=== PATIENT | male | born 1955 | race Caucasian/White ===

== ENCOUNTER 2017-12-19 09:08 | Emergency (ER) | payer OTHER, SELFPAY ==
[2017-12-19 09:22] VITALS: TEMP 98.7; BMI 32.1
--- NOTE | 2017-12-19 10:00 | ED PDOC ---
HPI: Back Time Seen by Provider: 12/19/17 09:25 Chief Complaint (Nursing): Back Pain History Per: Patient History/Exam Limitations: no limitations Onset/Duration Of Symptoms: Days (5), Persistent Current Symptoms Are (Timing): Still Present Quality Of Discomfort: Aching Severity: Moderate Pain Scale Rating Of: 4 Previous Symptoms: None Associated Symptoms: None Exacerbating Factor(s): Turning, Movement Additional History Per: Patient Additional Complaint(s): Patient presenting with right lower back pain for 5 days. Reports pain is worse with bending, moving, and walking. Reports he was lifting heavy stuff at work 5 days prior. Denies any weakness, numbness, urinary complains, fever, or injury. Past Medical History Reviewed: Historical Data, Nursing Documentation, Vital Signs Vital Signs: Last Vital Signs Temp 98.7 F 12/19/17 09:20 Pulse 72 12/19/17 09:20 Resp 20 12/19/17 09:20 BP 144/75 12/19/17 09:20 Pulse Ox 97 12/19/17 09:20 - Medical History PMH: Diabetes, HTN, Hypercholesterolemia Denies: Chronic Kidney Disease - Surgical History Surgical History: Hernia Repair - Family History Family History: States: No Known Family Hx - Home Medications Home Medications: Ambulatory Orders Medication Instructions Recorded Aspirin [Aspirin Chewable] 81 mg PO DAILY 02/27/17 Atorvastatin [Lipitor] 40 mg PO DAILY 02/27/17 Losartan/Hydrochlorothiazide 1 each PO DAILY 02/27/17 [Losartan-Hctz 100-12.5 mg Tab] metFORMIN [glucOPHAGE] 500 mg PO BID 02/27/17 Cyclobenzaprine [Cyclobenzaprine 10 mg PO TID #15 tab 12/19/17 HCl] Naproxen 500 mg PO BID #10 tab 12/19/17 - Allergies Allergies/Adverse Reactions: Allergies Allergy/AdvReac Type Severity Reaction Status Date / Time No Known Allergies Allergy Verified 02/27/17 08:28 Review of Systems ROS Statement: Except As Marked, All Systems Reviewed And Found Negative Constitutional: Negative for: Fever Musculoskeletal: Positive for: Back Pain Neurological: Negative for: Weakness, Numbness, Incoordination Physical Exam - Reviewed Nursing Documentation Reviewed: Yes Vital Signs Reviewed: Yes - Physical Exam Appears: Positive for: Well, Non-toxic, No Acute Distress Head Exam: Positive for: ATRAUMATIC, NORMAL INSPECTION Skin: Positive for: Normal Color, Warm, Dry Eye Exam: Positive for: EOMI ENT: Positive for: Normal ENT Inspection Neck: Positive for: Painless ROM, Supple Cardiovascular/Chest: Positive for: Regular Rate, Rhythm Respiratory: Negative for: Respiratory Distress Gastrointestinal/Abdominal: Positive for: Soft. Negative for: Tenderness Back: Positive for: Muscle Spasm (Right lower back). Negative for: L CVA Tenderness, R CVA Tenderness Extremity: Positive for: Normal ROM Neurologic/Psych: Positive for: Alert, Oriented, Gait (steady) - ECG O2 Sat by Pulse Oximetry: 97 - Progress Re-evaluation Time: 10:44 Condition: Re-examined, Improved Medical Decision Making Medical Decision Making: Impression Back pain Diff dx include MS pain, muscle spasm. Plan Toradol IM flexeril PO urine dip reassess Disposition - Clinical Impression Clinical Impression: Low back pain - Patient ED Disposition Is Patient to be Admitted: No Doctor Will See Patient In The: Office Counseled Patient/Family Regarding: Studies Performed, Diagnosis, Need For Followup - Disposition Referrals: [facility] [Outside] Disposition: Routine/Home Disposition Time: 10:45 Condition: GOOD Additional Instructions: Take your medications as instructed. Follow up with your PCP in 2-3 days. Prescriptions: Cyclobenzaprine [Cyclobenzaprine HCl] 10 mg PO TID #15 tab Naproxen 500 mg PO BID #10 tab Instructions: Low Back Pain in Adults Forms: [facility] ED School/Work Excuse Print Language: ROMANIAN
[2017-12-19 11:04] VITALS: BP 130/75; PULSE 75; RESP 19; O2SAT 98
== END 2017-12-19 11:04 | disposition home or self-care (01) ==
LOC: H.ER 09:08
DX: M54.5 Low back pain (principal); E11.9 Type 2 diabetes mellitus without complications; Z79.84 Long term (current) use of oral hypoglycemic drugs; I10 Essential (primary) hypertension; Z79.82 Long term (current) use of aspirin
CPT/HCPCS: 96372; 99282; J1885

== ENCOUNTER 2018-08-21 17:05 | Emergency (ER) | payer SELFPAY ==
[2018-08-21 17:06] VITALS: BMI 32.1
[2018-08-21 17:19] VITALS: BP 139/70; PULSE 96; RESP 16; TEMP 98.6; O2SAT 96
--- NOTE | 2018-08-21 19:23 | ED PDOC ---
HPI: Male Pain Time Seen by Provider: 08/21/18 18:28 Chief Complaint (Nursing): Male Genitourinary Chief Complaint (Provider): Male Genitourinary History Per: Patient History/Exam Limitations: no limitations Additional Complaint(s): Patient is a 63 year old male who presents to the emergency department for penile irritation for x3 days. Patient has no urinary symptoms, penile discharge, fever, hematuria, scrotal pain or swelling, abdominal pain, headache, dizziness. He has not taken any medication for his symptoms and states he has never had a similar episode in the past. 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 No other complaints. PMD: Kassandra Reis Past Medical History Reviewed: Historical Data, Nursing Documentation, Vital Signs Vital Signs: Last Vital Signs Temp 98.6 F 08/21/18 17:15 Pulse 96 H 08/21/18 17:15 Resp 16 08/21/18 17:15 BP 139/70 08/21/18 17:15 Pulse Ox 96 08/21/18 17:15 - Medical History PMH: Diabetes, HTN, Hypercholesterolemia - Surgical History Surgical History: Hernia Repair - Family History Family History: States: Unknown Family Hx - Home Medications Home Medications: Ambulatory Orders Medication Instructions Recorded Aspirin [Aspirin Chewable] 81 mg PO DAILY 02/27/17 Atorvastatin [Lipitor] 40 mg PO DAILY 02/27/17 Losartan/Hydrochlorothiazide 1 each PO DAILY 02/27/17 [Losartan-Hctz 100-12.5 mg Tab] metFORMIN [glucOPHAGE] 500 mg PO BID 02/27/17 Cyclobenzaprine [Cyclobenzaprine 10 mg PO TID #15 tab 12/19/17 HCl] Naproxen 500 mg PO BID #10 tab 12/19/17 Clotrimazole 1% [Lotrimin AF 1%] 1 applic TOP BID #1 bottle 08/21/18 - Allergies Allergies/Adverse Reactions: Allergies Allergy/AdvReac Type Severity Reaction Status Date / Time No Known Allergies Allergy Verified 08/21/18 17:15 Review of Systems ROS Statement: Except As Marked, All Systems Reviewed And Found Negative Genitourinary Male: Positive for: Other (penile irritation). Negative for: Dysuria, Frequency, Incontinence, Hematuria, Penile Discharge, Scrotal Pain Physical Exam - Reviewed Nursing Documentation Reviewed: Yes Vital Signs Reviewed: Yes - Physical Exam Comments: GENERAL APPEARANCE: Patient is awake, alert, oriented x 3, in no acute distress. SKIN: Warm, dry; (-) cyanosis. EYES: (-) conjunctival injection ENMT: Mucous membranes moist. Airway patent: (-) stridor. NECK: Supple, FROM CHEST AND RESPIRATORY: (-) wheezing; (-) rales, (-) rhonchi; breath sounds equal bilaterally. Respirations even and nonlabored. HEART AND CARDIOVASCULAR: (-) irregularity ABDOMEN AND GI: Soft; (-) tenderness. EXTREMITIES: (-) deformity, (-) edema. GENITOURINARY: Uncircumcised penis; foreskin is easily retractable (-) phimosis (-) paraphimosis; (+) erythematous macules to the distal penile shaft with x1 white plaque. (-) testicular tenderness (-) scrotal swelling. ED RN Shilo was present for exam as a project estimator. NEURO AND PSYCH: Mental status as above; (-) focal findings. Gait: steady. Speech: clear. (-) facial asymmetry - ECG O2 Sat by Pulse Oximetry: 96 (RA) Pulse Ox Interpretation: Normal Medical Decision Making Medical Decision Making: Time: 1914 Impression: balanitis Plan: --Accucheck: 93. Diagnostic results d/w the patient in great detail. Diagnosis of balanitis, penile irritation d/w the patient. Based on history, exam and diagnostic results, plan will be for outpatient follow up with urology/clinic. Patient instructed to follow-up with pmd / referral provided / the clinic in 1- 2 days without fail. Advised to take medication as prescribed. Return to the emergency room at any time for any new or worsening symptoms. Patient states he fully agrees with and understands discharge instructions. States that he agrees with the plan and disposition. Verbalized and repeated discharge instructions and plan. I have given the patient opportunity to ask any additional questions. Scribe Attestation: Documented by Bartolo Alexander acting as a scribe for Dolly Wilkins Provider Scribe Attestation: All medical record entries made by the Scribe were at my direction and pe rsonally dictated by me. I have reviewed the chart and agree that the record accurately reflects my personal performance of the history, physical exam, medical decision making, and the department course for this patient. I have also personally directed, reviewed, and agree with the discharge instructions and disposition. Disposition - Clinical Impression Clinical Impression: Balanitis, Penile irritation - Patient ED Disposition Is Patient to be Admitted: No Counseled Patient/Family Regarding: Studies Performed, Diagnosis, Need For Followup, Rx Given - Disposition Referrals: Navneet Salas MD [Staff Provider] - [facility] [Outside] Disposition: Routine/Home Disposition Time: 19:15 Condition: STABLE Additional Instructions: La atencin mdica de emergencia que recibi hoy se dirigi a loretta sntomas agudos. Si le recetaron algn medicamento, llnelo y tmelo segn las indicaciones. Los sntomas pueden tardar varios kwok en resolverse. Regrese al Departamento de Emergencias si loretta sntomas empeoran, no mejoran o si tiene otros problemas. Comunquese con leung mdico dentro de 2 kwok para frances nueva evaluacin y kendra un seguimiento o llame a qiana de los mdicos / clnicas a los que ta sido referido y que figuran en el formulario de Informacin de visita al paciente que se incluye en leung paquete de sony. Lleve todos los documentos que recibi al momento del sony junto con los medicamentos que est tomando para leung visita de seguimiento. Nuestro tratamiento no puede reemplazar la atencin mdica continua por parte de un proveedor de atencin primaria (PCP) fuera del departamento de emergencias. Prescriptions: Clotrimazole 1% [Lotrimin AF 1%] 1 applic TOP BID #1 bottle Instructions: Balanitis Forms: [facility] (Algerian) Print Language: SETSWANA - POA Present On Arrival: None
== END 2018-08-21 20:35 | disposition home or self-care (01) ==
LOC: H.ER 17:05
DX: N48.1 Balanitis (principal); E11.9 Type 2 diabetes mellitus without complications; E78.00 Pure hypercholesterolemia, unspecified; I10 Essential (primary) hypertension; Z79.84 Long term (current) use of oral hypoglycemic drugs